=== PATIENT | male | born 1960 | race Caucasian/White ===

== ENCOUNTER 2018-03-02 02:51 | Inpatient (IN) | payer OTHER ==
[~2018-03-02] VITALS: Ht 162.6 cm; Wt 66.8 kg
[2018-03-02 03:04] VITALS: Ht 162.6 cm; Wt 66.8 kg
[2018-03-02 03:53] LABS: BASOPHIL % 0.9 % (0-2); PLATELET COUNT 134 x10^3mcL (130-400)
[2018-03-02 03:56] LABS: RED CELL DISTRIBUTION WIDTH 16.6 % (11.5-14.5)
[2018-03-02 04:08] LABS: BILIRUBIN TOTAL 1.46 mg/dL (0.20-1.00); CALCIUM 8.3 mg/dL (8.5-10.1); CREATININE SERUM 1.4 mg/dL (0.7-1.3); POTASSIUM SERUM 4.1 mmol/L (3.5-5.1); TOTAL PROTEIN, SERUM 7.1 g/dL (6.4-8.2)
[2018-03-02 04:10] LABS: ALBUMIN 2.5 g/dL (3.4-5.0)
[2018-03-02 07:40] VITALS: BP 131/96
[2018-03-02 08:08] LABS: FREE T4 1.2 ng/dL (0.76-1.46); FREE THYROXINE INDEX 2.7 ug/dL (1.4-4.5); T4(THYROXINE) 6.9 ug/dL (4.7-13.3)
[2018-03-02 08:11] VITALS: BP 131/96
[2018-03-02 08:25] LABS: CHOLESTEROL/HDL RATIO 5.3; MAGNESIUM 1.7 mg/dL (1.8-2.4); PHOSPHOROUS 3.8 mg/dL (2.5-4.9)
[2018-03-02 09:31] LABS: T3 TOTAL 0.57 ng/mL
[2018-03-02 13:58] VITALS: BP 130/89
[2018-03-02 15:50] VITALS: BP 127/79
[2018-03-02 16:23] LABS: microscopic required? YES; urine erythrocyte NEGATIVE (NEGATIVE)
[2018-03-02 16:59] LABS: AMPHETAMINE QUAL UR POSITIVE (See below)
[2018-03-02 22:01] VITALS: BP 116/78
[2018-03-03 05:13] VITALS: BP 116/87
[2018-03-03 07:13] LABS: BASOPHIL % 0.5 % (0-2); PLATELET COUNT 144 x10^3mcL (130-400)
[2018-03-03 07:16] LABS: RED CELL DISTRIBUTION WIDTH 16.8 % (11.5-14.5)
[2018-03-03 07:30] LABS: CALCIUM 8.4 mg/dL (8.5-10.1); CARBON DIOXIDE 23.3 mmol/L (21-32); CHLORIDE SERUM 99 mmol/L (98-107); CREATININE SERUM 1.1 mg/dL (0.7-1.3); GFR1 > 60 mL/min; GLUCOSE SERUM 157 mg/dL (74-106); MAGNESIUM 1.7 mg/dL (1.8-2.4); PHOSPHOROUS 3.6 mg/dL (2.5-4.9); POTASSIUM SERUM 3.8 mmol/L (3.5-5.1); SODIUM SERUM 133 mmol/L (136-145)
[2018-03-03 08:10] VITALS: BP 125/85
[2018-03-03 12:22] VITALS: BP 101/72
[2018-03-03 16:35] VITALS: BP 122/80
[2018-03-03 20:54] VITALS: BP 113/77
[2018-03-04 05:16] VITALS: BP 105/65
[2018-03-04 07:06] LABS: CALCIUM 8.6 mg/dL (8.5-10.1); CARBON DIOXIDE 23.4 mmol/L (21-32); CHLORIDE SERUM 101 mmol/L (98-107); CREATININE SERUM 1.2 mg/dL (0.7-1.3); GFR1 > 60 mL/min; GLUCOSE SERUM 137 mg/dL (74-106); MAGNESIUM 1.9 mg/dL (1.8-2.4); PHOSPHOROUS 3.5 mg/dL (2.5-4.9); POTASSIUM SERUM 3.5 mmol/L (3.5-5.1); SODIUM SERUM 136 mmol/L (136-145)
[2018-03-04 07:30] VITALS: BP 121/73
[2018-03-04 08:44] LABS: BASOPHIL % 0.5 % (0-2); PLATELET COUNT 165 x10^3mcL (130-400); RED CELL DISTRIBUTION WIDTH 16.5 % (11.5-14.5)
[2018-03-04 09:30] VITALS: BP 121/73
[2018-03-04 12:18] VITALS: BP 96/62
[2018-03-04] MEDS ORDERED: DIG125 PO (12:26)
[2018-03-04] MEDS ORDERED: METFORMIN HYDR500 M1 PO (12:26)
[2018-03-04] MEDS ORDERED: COREG CR20 MG PO (12:26)
[2018-03-04] MEDS ORDERED: FLONS (12:26)
== END 2018-03-04 12:46 | disposition home or self-care (01) | DRG 291 ==
LOC: ED 02:51 → DU 06:07
PROVIDERS: Emergency Medicine; ADMIT Family Medicine
DX: I50.43 Acute on chronic combined systolic (congestive) and diastolic (congestive) heart failure (principal); N17.0 Acute kidney failure with tubular necrosis; E43 Unspecified severe protein-calorie malnutrition; R65.10 Systemic inflammatory response syndrome (SIRS) of non-infectious origin without acute organ dysfunction; E87.1 Hypo-osmolality and hyponatremia; E11.65 Type 2 diabetes mellitus with hyperglycemia; E11.42 Type 2 diabetes mellitus with diabetic polyneuropathy; E83.51 Hypocalcemia; E83.42 Hypomagnesemia; F15.10 Other stimulant abuse, uncomplicated; F11.10 Opioid abuse, uncomplicated; F14.10 Cocaine abuse, uncomplicated; I25.2 Old myocardial infarction; Z95.0 Presence of cardiac pacemaker; Z79.84 Long term (current) use of oral hypoglycemic drugs; Z91.14 Patient's other noncompliance with medication regimen
CPT/HCPCS: 82962; 83880; 84439; J1815; J1940; J2270; J3490; J7030; Q0092